=== PATIENT | female | born 1990 | race Caucasian/White ===

== ENCOUNTER 2017-08-02 12:23 | Emergency (ER) | END 2017-08-02 16:30 | disposition home or self-care (01) ==

== ENCOUNTER 2017-08-31 14:38 | Emergency (ER) | END 2017-08-31 18:59 | disposition home or self-care (01) ==

== ENCOUNTER 2017-09-10 16:43 | Emergency (ER) | END 2017-09-10 17:20 | disposition home or self-care (01) ==

== ENCOUNTER 2018-01-20 17:22 | Emergency (ER) | END 2018-01-20 19:43 | disposition home or self-care (01) ==

== ENCOUNTER 2018-04-02 09:49 | Emergency (ER) | END 2018-04-02 12:37 | disposition home or self-care (01) ==

== ENCOUNTER 2018-10-13 12:31 | Inpatient (IN) | payer BC ==
[~2018-10-13] VITALS: Ht 165.1 cm; Wt 61.3 kg
[~2018-10-13 12:31] MED LIST: ACET325T33 PO; AMOX1TAB10 PO; BACITUD TOP; CYCL10TA7 PO; GUAI-173 PO; GUAI1TBM12 PO; IBUP-1542 PO; MECL12.574 PO; MED4DP PO; NAPR-985 PO; ONDA4TAB14 PO; PHEN177S6 MM; PSEU30TA38 PO
[2018-10-13] MEDS ORDERED: morphine 2 MG INJ IV STA ×2 (14:05→18:57)
[2018-10-13] MEDS ORDERED: ONDANSETRON 4 MG INJ IV STA (14:05)
[2018-10-13] MEDS ORDERED: SOD CHLORIDE 0.9% 1,000 ML IV STA (14:05)
[2018-10-13] MEDS ORDERED: IOHEXOL 300MG/ML 150 ML BTL ONE (16:24)
[2018-10-13] MEDS ORDERED: SOD CHLORIDE 0.9% 100 ML ONE (16:24)
[2018-10-13] MEDS ORDERED: KETOROLAC 30 MG INJ IV STA (17:26)
[2018-10-13] MEDS ORDERED: SOD CHLORIDE 0.9% 1,000 ML IV ONE (17:30)
[2018-10-13] MEDS ORDERED: PIPER-TAZO 3.375 GM IV (PMX) 100 ML IVPB ONE (17:30)
--- NOTE | 2018-10-13 17:43 | ERD ---
ER Documentation Chief Complaint Chief Complaint ABD PAIN X1 DAY HPI The patient is a 28-year-old female, presenting to the ER because of right lower quadrant abdominal pain that began last night, denies similar symptoms previously, no aggravating/relieving factor, denies fever, chills, neck pain, chest pain, dyspnea, vomiting, dysuria, complains of constipation, last meal was last night and she is not hungry. She does not smoke nor drink, LMP was 2 weeks ago Past medical/surgical history: None ROS All systems reviewed and are negative except as per history of present illness. Medications Home Meds Active Scripts Ibuprofen* (Motrin*) 600 Mg Tab, 600 MG PO Q6, #20 TAB Prov:PEDRO WELLS MD 06/25/18 Ondansetron (Ondansetron Odt) 4 Mg Tab.rapdis, 4 MG PO Q6H PRN for NAUSEA AND/OR VOMITING, #10 TAB Prov:ROSALIA PHILIPPE PA-C 04/02/18 Meclizine Hcl* (Antivert*) 12.5 Mg Tab, 12.5 MG PO Q6H PRN for DIZZINESS, #20 TAB Prov:ROSALIA PHILIPPE PA-C 04/02/18 Amoxicillin/Potassium Clav (Amox-Clav 875-125 mg Tablet) 875-125 mg Tab, 1 TAB PO BID for 7 Days, #14 TAB Prov:ROSALIA PHILIPPE PA-C 04/02/18 Pseudoephedrine Hcl* (Pseudoephedrine Hcl*) 30 Mg Tablet, 30 MG PO Q6 PRN for CONGESTION, #30 TAB Prov:ROSALIA PHILIPPE PA-C 04/02/18 Naproxen* (Naprosyn*) 500 Mg Tablet, 500 MG PO BID PRN for PAIN AND/OR INFLAMMATION, #30 TAB Prov:ROSALIA PHILIPPE PA-C 04/02/18 Guaifenesin/Dextromethorphan (Mucinex Dm ER 1,200-60 mg Tab) 1 Each Tbmp.12hr, 1 EACH PO BID for 7 Days, #14 TAB Prov:PEDRO WELLS MD 01/20/18 Ibuprofen* (Motrin*) 600 Mg Tab, 600 MG PO Q6, #15 TAB Prov:PEDRO WELLS MD 01/20/18 Bacitracin* (Bacitracin Oint (UD)*) 1 Applic Oint, 1 APPLIC TOP ONCE PRN for BID, #7 PKT APPLY TO Prov:MARY ARAGON PA-C 09/10/17 Cyclobenzaprine Hcl* (Cyclobenzaprine Hcl*) 10 Mg Tablet, 10 MG PO TID PRN for PAIN LEVEL 6-10, #15 TAB Prov:PASILABANABUNDIOAR F 08/31/17 Ibuprofen* (Motrin*) 600 Mg Tab, 600 MG PO Q6H PRN for PAIN AND OR ELEVATED TEMP, #30 TAB Prov:PASILABANABUNDIOAR F 08/31/17 Amoxicillin/Potassium Clav (Amox-Clav 875-125 mg Tablet) 875-125 mg Tab, 1 TAB PO BID for 10 Days, #20 TAB Prov:PASILABANABUNDIOAR F 08/31/17 Methylprednisolone* (Medrol* DOSE PACK) 4 Mg/Dose-Pack Tab.ds.pk, 4 MG PO . DIRECTED for 3 Days, PACKET Prov:AUBRIE BURT 08/02/17 Acetaminophen* (Tylenol*) 325 Mg Tablet, 2 TAB PO Q6 PRN for PAIN AND OR ELEVATED TEMP, #20 TAB Prov:AUBRIE BURT 08/02/17 Phenol* (Throat [place]*) 177 Ml [place], 2 SPRAY MM Q2H PRN for SORE THROAT for 3 Days, SPRAY Prov:AUBRIE BURT 08/02/17 Guaifenesin* (Tussin*) 100 Mg/5 Ml Syrup, 200 MG PO Q6 PRN for COUGH for 3 Days, ML Prov:AUBRIE BURT 08/02/17 Ibuprofen* (Motrin*) 600 Mg Tab, 600 MG PO Q6, #30 TAB Prov:AUBRIE BURT 08/02/17 Allergies Allergies: Coded Allergies: No Known Allergy (Unverified , 04/02/18) PMhx/Soc Medical and Surgical Hx: pt denies Medical Hx, pt denies Surgical Hx History of Surgery: No Anesthesia Reaction: No Hx Neurological Disorder: No Hx Respiratory Disorders: No Hx Cardiac Disorders: No Hx Psychiatric Problems: No Hx Miscellaneous Medical Probl: No Hx Alcohol Use: No Hx Substance Use: No Hx Tobacco Use: No Smoking Status: Never smoker Physical Exam Vitals Vital Signs Date Temp Pulse Resp B/P (MAP) Pulse Ox O2 O2 Flow FiO2 Time Delivery Rate 10/13/18 99.4 106 17 118/87 98 12:33 (97) Physical Exam Const: No acute distress. Dehydrated Head: Atraumatic. Eyes: Normal Conjunctiva. ENT: Normal External Ears, Nose and Mouth. Neck: Full range of motion. No meningismus. Resp: Clear to auscultation bilaterally. Cardio: Regular tachycardic. Abd: Soft, non distended, normal bowel sounds, localized/moderate right lower quadrant tenderness, no rigidity/rebound/CVA tenderness Skin: No petechiae or rashes. Back: No midline or flank tenderness. Ext: No cyanosis, or edema. Neur: Awake and alert. No focal deficit Psych: Normal Mood and Affect. Result Diagram: 10/13/18 1428 10/13/18 1428 Results 24 hrs Laboratory Tests Test 10/13/18 14:28 10/13/18 14:35 White Blood Count 11.0 10^3/ul Red Blood Count 4.36 10^6/ul Hemoglobin 13.0 g/dl Hematocrit 38.4 % Mean Corpuscular Volume 88.1 fl Mean Corpuscular Hemoglobin 29.8 pg Mean Corpuscular Hemoglobin Concent 33.9 g/dl Red Cell Distribution Width 12.3 % Platelet Count 183 10^3/UL Mean Platelet Volume 10.2 fl Immature Granulocytes % 0.400 % Neutrophils % 82.9 % Lymphocytes % 11.7 % Monocytes % 4.7 % Eosinophils % 0.2 % Basophils % 0.1 % Nucleated Red Blood Cells % 0.0 /100WBC Immature Granulocytes # 0.040 10^3/ul Neutrophils # 9.1 10^3/ul Lymphocytes # 1.3 10^3/ul Monocytes # 0.5 10^3/ul Eosinophils # 0.0 10^3/ul Basophils # 0.0 10^3/ul Nucleated Red Blood Cells # 0.0 10^3/ul Sodium Level 139 mmol/L Potassium Level 4.0 mmol/L Chloride Level 103 mmol/L Carbon Dioxide Level 27 mmol/L Anion Gap 9 Blood Urea Nitrogen 15 mg/dl Creatinine 0.61 mg/dl Est Glomerular Filtrat Rate mL/min > 60 mL/min Glucose Level 92 mg/dl Calcium Level 9.4 mg/dl Total Bilirubin 2.0 mg/dl Direct Bilirubin 0.00 mg/dl Indirect Bilirubin 2.0 mg/dl Aspartate Amino Transf (AST/SGOT) 20 IU/L Alanine Aminotransferase (ALT/SGPT) 28 IU/L Alkaline Phosphatase 70 IU/L Total Protein 8.0 g/dl Albumin 4.6 g/dl Globulin 3.40 g/dl Albumin/Globulin Ratio 1.35 Lipase 59 U/L Serum HCG, Qualitative NEGATIVE POC Beta HCG, Qualitative NEGATIVE Current Medications Medications Dose Sig/Marimar Start Time Status Last (Trade) Ordered Route PRN Stop Time Admin Dose Reason Admin Sodium 1,000 ml @ Q1H STAT 10/13/18 DC 10/13/18 Chloride 1,000 mls/hr IV 14:05 14:34 10/13/18 15:04 Morphine 2 mg ONCE STAT 10/13/18 DC 10/13/18 Sulfate IV 14:05 14:34 (morphine) 10/13/18 14:07 Ondansetron 4 mg ONCE STAT 10/13/18 DC 10/13/18 HCl (Zofran IV 14:05 14:34 Inj) 10/13/18 14:07 IV Flush 10 ml STK-MED 10/13/18 DC (NS 10 ml) ONCE .ROUTE 16:24 10/13/18 16:25 Sodium 100 ml @ ud STK-MED 10/13/18 DC Chloride ONCE .ROUTE 16:24 10/13/18 16:25 Iohexol 150 ml STK-MED 10/13/18 DC (Omnipaque ONCE .ROUTE 16:24 300mg/ ml) 10/13/18 16:25 Piperacillin 100 ml @ ONCE ONCE 10/13/18 10/13/18 Sod/ 200 mls/hr IVPB 17:30 17:12 Tazobactam 10/13/18 17:59 Sod Sodium 1,000 ml @ Q1H ONCE 10/13/18 Chloride 1,000 mls/hr IV 17:30 10/13/18 18:29 Ketorolac 30 mg ONCE STAT 10/13/18 DC Tromethamine IV 17:26 (Toradol) 10/13/18 17:28 Procedures/[place] [id number] Radiology Main Line: [phone] DIAGNOSTIC IMAGING REPORT Patient: JEAN-CLAUDE FOWLER : 1990 Age: 28 Sex: F MR #: [id number] [facility] #: [id number] DOS: 10/13/18 1535 Ordering MD: PEDRO WELLS MD Location: ON LICENSE OF [facility] Room/Bed: PROCEDURE: CT ABDOMEN AND PELVIS WITH IV CONTRAST. CLINICAL INDICATION: Right lower quadrant pain TECHNIQUE: CT scan of the abdomen and pelvis with contrast was performed on a multidetector high-resolution CT scanner following the use of IV contrast. 90 cc Omnipaque-300 was administered. Coronal and sagittal reformatted images were obtained from the axial source images. Images were reviewed on a high-resolution PACS workstation. The total exam CTDI equals 6.3 mGy and the total exam DLP equals 393.9 mGy-cm. One or more of the following dose reduction techniques were used: Automated exposure control. Adjustment of the mA and/or kV according to patient size. Use of iterative reconstruction technique. DICOM images are available. COMPARISON: None FINDINGS: CT abdomen: The lung bases are clear. The heart size is within normal limits. There is no significant pericardial effusion. Hepatic morphology is within normal limits. No gross contour deforming masses. The gallbladder is within normal limits. No evidence of intrahepatic or extrahepatic biliary dilatation. The spleen and pancreas are within normal limits. Both adrenal glands are within normal limits. Both kidneys are in normal anatomic position. No evidence of obstruction or hydronephrosis. No gross renal/ureteric calculi. The visualized GI tract demonstrate normal caliber loops of small and large bowel. No evidence of bowel obstruction. The appendix is identified with enhan cement and thickening of the millan with adjacent fat stranding and fluid, consistent with acute appendicitis. No evidence of perforation or focal fluid collections. The aorta is unremarkable. No significant retroperitoneal lymphadenopathy. CT pelvis: The bladder is distended. The uterus is within normal limits. The rectosigmoid colon demonstrates stool. No significant free fluid. No pelvic lymphadenopathy. The visualized osseous structures, appears to be within normal limits. IMPRESSION: 1. FINDINGS DESCRIBED ABOVE ARE CONSISTENT WITH ACUTE APPENDICITIS. THERE IS ADJACENT FATTY STRANDING AND FLUID. NO EVIDENCE OF PERFORATION OR FOCAL FLUID COLLECTIONS. 2. No evidence of bowel obstruction. Call report was made with Dr. Karl Arturo @ 5:00 PM on 10/13/18 RPTAT: AAPP Nahun Fernandez Physician Date Time Electronically viewed and signed by Nahun Fernandez Physician on 10/13/2018 17:01 JL/ CC: PEDRO WELLS MD [phone] UA is pending Consultation: I discussed the patient with the on-call general surgeon Dr. Cantu at 5:30 PM, who was made aware of the lab, the treatment, the patient condition and he accepted the consult MEDICAL MAKING DECISION: The patient is a 28-year-old female, presenting with acute appendicitis, was treated with Zosyn IV, 2 L normal saline IV for clinical dehydration, morphine 2 mg, Toradol 30 mg IV for pain, Zofran 4 mg IV for nausea The differential diagnoses considered include but are not limited to cholelithiasis, cholecystitis, choledocholithiasis, cholangitis, pancreatitis, hepatitis, gastritis, peptic ulcer disease, gastric ulcer, appendicitis, cystitis, diverticulitis, partial small bowel obstruction. Departure Diagnosis: Primary Impression: Appendicitis, acute Condition: Stable Comments I discussed the findings with the patient. I discussed the patient with the hospitalist, who was made aware of the lab, the treatment, the patient condition. The patient is admitted to [facility] Disclaimer: Inadvertent spelling and grammatical errors are likely due to EHR/dictation software use and do not reflect on the overall quality of patient care. Also, please note that the electronic time recorded on this note does not necessarily reflect the actual time of the patient encounter. YUDI TAVARES MD October 13, 2018 17:43
[2018-10-13] MEDS ORDERED: ONDANSETRON 4 MG INJ IV PRN (18:30)
[2018-10-13] MEDS ORDERED: morphine 4 MG/ML VIAL IV STA ×2 (18:52→21:06)
--- NOTE | 2018-10-13 20:38 | CONS ---
Assessment/Plan Assessment/Plan Problems: (1) Appendicitis Status: Acute Qualifiers: Assessment/Plan (Daily) 28-year-old otherwise healthy female with a clinical picture and CT scan findings consistent with acute appendicitis. Patient will need laparoscopic appendectomy. We discussed risks and benefits were discussed possible side effects, possible complications including but not limited to bleeding, i nfection, injury to other organs, anesthesia complication, patient understood risk and benefits and wished to proceed. We will start antibiotics. Consultation Date/Type/Reason Admit Date/Time Date of Consultation: October 13, 2018 Type of Consult Surgical Date/Time of Note DATE: 10/13/18 TIME: 20:32 Hx of Present Illness The patient is a 28-year-old female, presenting to the ER because of right lower quadrant abdominal pain that began last night, denies similar symptoms previo usly, no aggravating/relieving factor, denies fever, chills, neck pain, chest pain, dyspnea, vomiting, dysuria, complains of constipation, last meal was last night and she is not hungry. She does not smoke nor drink, LMP was 2 weeks ago Constitutional: no complaints, improved Eyes: no complaints ENT: no complaints Respiratory: no complaints Cardiovascular: no complaints Gastrointestinal: pain, decreased appetite, vomiting Genitourinary: no complaints Musculoskeletal: no complaints Skin: no complaints Neurologic: no complaints Endocrine: no complaints Lymphatic: no complaints Psychological: no complaints, nl mood/affect Immunologic: no complaints Past Medical History Medical History: no pertinent history Home Meds Active Scripts Ibuprofen* (Motrin*) 600 Mg Tab, 600 MG PO Q6, #20 TAB Prov:PEDRO WELLS MD 06/25/18 Ondansetron (Ondansetron Odt) 4 Mg Tab.rapdis, 4 MG PO Q6H PRN for NAUSEA AND/OR VOMITING, #10 TAB Prov:ROSALIA PHILIPPE PA-C 04/02/18 Meclizine Hcl* (Antivert*) 12.5 Mg Tab, 12.5 MG PO Q6H PRN for DIZZINESS, #20 TAB Prov:ROSALIA PHILIPPE PA-C 04/02/18 Amoxicillin/Potassium Clav (Amox-Clav 875-125 mg Tablet) 875-125 mg Tab, 1 TAB PO BID for 7 Days, #14 TAB Prov:ROSALIA PHILIPPE PA-C 04/02/18 Pseudoephedrine Hcl* (Pseudoephedrine Hcl*) 30 Mg Tablet, 30 MG PO Q6 PRN for CONGESTION, #30 TAB Prov:ROSALIA PHILIPPE PA-C 04/02/18 Naproxen* (Naprosyn*) 500 Mg Tablet, 500 MG PO BID PRN for PAIN AND/OR INFLAMMATION, #30 TAB Prov:ROSALIA PHILIPPE PA-C 04/02/18 Guaifenesin/Dextromethorphan (Mucinex Dm ER 1,200-60 mg Tab) 1 Each Tbmp.12hr, 1 EACH PO BID for 7 Days, #14 TAB Prov:PEDRO WELLS MD 01/20/18 Ibuprofen* (Motrin*) 600 Mg Tab, 600 MG PO Q6, #15 TAB Prov:PEDRO WELLS MD 01/20/18 Bacitracin* (Bacitracin Oint (UD)*) 1 Applic Oint, 1 APPLIC TOP ONCE PRN for BID, #7 PKT APPLY TO Prov:MARY ARAGON PA-C 09/10/17 Cyclobenzaprine Hcl* (Cyclobenzaprine Hcl*) 10 Mg Tablet, 10 MG PO TID PRN for PAIN LEVEL 6-10, #15 TAB Prov:BIPIN CONCEPCION 08/31/17 Ibuprofen* (Motrin*) 600 Mg Tab, 600 MG PO Q6H PRN for PAIN AND OR ELEVATED TEMP, #30 TAB Prov:BIPIN CONCEPCION 08/31/17 Amoxicillin/Potassium Clav (Amox-Clav 875-125 mg Tablet) 875-125 mg Tab, 1 TAB PO BID for 10 Days, #20 TAB Prov:BIPIN CONCEPCION 08/31/17 Methylprednisolone* (Medrol* DOSE PACK) 4 Mg/Dose-Pack Tab.ds.pk, 4 MG PO . DIRECTED for 3 Days, PACKET Prov:AUBRIE BURT 08/02/17 Acetaminophen* (Tylenol*) 325 Mg Tablet, 2 TAB PO Q6 PRN for PAIN AND OR ELEVATED TEMP, #20 TAB Prov:AUBRIE BURT 08/02/17 Phenol* (Throat [place]*) 177 Ml [place], 2 SPRAY MM Q2H PRN for SORE THROAT for 3 Days, SPRAY Prov:AUBRIE BURT 08/02/17 Guaifenesin* (Tussin*) 100 Mg/5 Ml Syrup, 200 MG PO Q6 PRN for COUGH for 3 Days, ML Prov:AUBRIE BURT 08/02/17 Ibuprofen* (Motrin*) 600 Mg Tab, 600 MG PO Q6, #30 TAB Prov:AUBRIE BURT 08/02/17 Medications Current Medications Ondansetron HCl (Zofran Inj) 4 mg Q4 PRN IV nausea Last administered on 10/13/18at 18:57; Admin Dose 4 MG; Start 10/13/18 at 18:30 Piperacillin Sod/ Tazobactam Sod 100 ml @ 200 mls/hr Q8 IVPB ; Start 10/13/18 at 23:30 Dextrose/Sodium Chloride 1,000 ml @ 100 mls/hr Q10H IV ; Start 10/13/18 at 19:00 Allergies: Coded Allergies: No Known Allergy (Unverified , 04/02/18) Past Surgical History Past Surgical Hx: no surgical history Family History Significant Family History: no pertinent family hx Social History Smoking Status: Never smoker Exam/Review of Systems Exam Vitals Vital Signs Date Temp Pulse Resp B/P (MAP) Pulse Ox O2 O2 Flow FiO2 Time Delivery Rate 10/13/18 97.4 75 20 104/59 99 18:50 (74) Constitutional: alert, oriented, well developed Psych: no complaints, nl mood/affect Head: normocephalic, atraumatic Eyes: nl conjunctiva, EOMI, nl lids, nl sclera, PERRL ENMT: nl external ears & nose, nl lips & teeth, nl nasal mucosa & septum Neck: supple, non-tender Respiratory: clear to auscultation, normal air movement Cardiovascular: regular rate and rhythm, nl pulses Gastrointestinal: soft, nl liver, spleen, other (There is a tenderness in the right lower quadrant with the positive rebound sign) Musculoskeletal: nl extremities to inspection, nl gait and stance Extremities: normal pulses Neurological: [employer] II-XII intact, nl mental status, nl speech, nl strength Skin: nl turgor; No rash or lesions Lymph: nl lymph nodes Results Result Diagram: 10/13/18 1428 10/13/18 1428 Results 24hrs Laboratory Tests Test 10/13/18 14:28 10/13/18 14:35 10/13/18 18:24 White Blood Count 11.0 #H Red Blood Count 4.36 Hemoglobin 13.0 Hematocrit 38.4 Mean Corpuscular Volume 88.1 Mean Corpuscular Hemoglobin 29.8 Mean Corpuscular Hemoglobin Concent 33.9 Red Cell Distribution Width 12.3 Platelet Count 183 Mean Platelet Volume 10.2 Immature Granulocytes % 0.400 Neutrophils % 82.9 H Lymphocytes % 11.7 L Monocytes % 4.7 Eosinophils % 0.2 Basophils % 0.1 Nucleated Red Blood Cells % 0.0 Immature Granulocytes # 0.040 H Neutrophils # 9.1 H Lymphocytes # 1.3 Monocytes # 0.5 Eosinophils # 0.0 Basophils # 0.0 Nucleated Red Blood Cells # 0.0 Sodium Level 139 Potassium Level 4.0 Chloride Level 103 Carbon Dioxide Level 27 Anion Gap 9 Blood Urea Nitrogen 15 Creatinine 0.61 Est Glomerular Filtrat Rate mL/min > 60 Glucose Level 92 Calcium Level 9.4 Total Bilirubin 2.0 H Direct Bilirubin 0.00 Indirect Bilirubin 2.0 H Aspartate Amino Transf (AST/SGOT) 20 Alanine Aminotransferase (ALT/SGPT) 28 Alkaline Phosphatase 70 Total Protein 8.0 Albumin 4.6 Globulin 3.40 H Albumin/Globulin Ratio 1.35 Lipase 59 Serum HCG, Qualitative NEGATIVE POC Beta HCG, Qualitative NEGATIVE Urine Color STRAW Urine Clarity CLEAR Urine pH 6.0 Urine Specific Geraldine > 1.060 H Urine Ketones TRACE A Urine Nitrite NEGATIVE Urine Bilirubin NEGATIVE Urine Urobilinogen NEGATIVE Urine Leukocyte Esterase NEGATIVE Urine Hemoglobin NEGATIVE Urine Glucose NEGATIVE Urine Total Protein NEGATIVE Imaging Imaging CT scan showed findings consistent with early appendicitis Medications Medication Current Medications Ondansetron HCl (Zofran Inj) 4 mg Q4 PRN IV nausea Last administered on 10/13/18at 18:57; Admin Dose 4 MG; Start 10/13/18 at 18:30 Piperacillin Sod/ Tazobactam Sod 100 ml @ 200 mls/hr Q8 IVPB ; Start 10/13/18 at 23:30 Dextrose/Sodium Chloride 1,000 ml @ 100 mls/hr Q10H IV ; Start 10/13/18 at 19:00 PATT PROCTOR MD October 13, 2018 20:38
[2018-10-13 22:15] VITALS: BP 129/83; PULSE 86; RESP 20
[2018-10-13] MEDS: PIPER-TAZO 3.375 GM IV (PMX) 100 ML IVPB SCH (23:24)
[2018-10-13] MEDS: DEXTROSE 5%-0.45% NACL 1,000 ML IV SCH (23:25)
[2018-10-14] VITALS (31 sets, daily range): BP systolic 92–150; BP diastolic 51–94; PULSE 48–110; RESP 11–22; Ht 165.1 cm; Wt 61.3 kg
[2018-10-14] MEDS: morphine 4 MG/ML VIAL IV PRN ×3 (00:21→21:04)
[2018-10-14] MEDS: DEXTROSE 5%-0.45% NACL 1,000 ML IV SCH (05:00)
[2018-10-14] MEDS: PIPER-TAZO 3.375 GM IV (PMX) 100 ML IVPB SCH ×3 (05:51→21:13)
[2018-10-14] MEDS ORDERED: BUPIVACAINE 0.5%/EPI (SDV) 30 ML INJ ONE (09:24)
--- NOTE | 2018-10-14 09:25 | PREAC ---
Date/Time of Note Date/Time of Note DATE: 10/14/18 TIME: 09:24 Anesthesia Eval and Record Evaluation Time Pre-Procedure Interview DATE: 10/14/18 TIME: 09:24 Age 28 Sex female NPO: 8 hrs Preoperative diagnosis acute appendicitis Planned procedure laparoscopic appendectomy Past Medical History Past Medical History: None Surgery & Anesthesia Issues No known issue Meds Anticoagulation: No Beta Ricardo within 24 hr: No Reason Beta Ricardo not given: Pt. not on B-Ricardo Active Scripts Ibuprofen* (Motrin*) 600 Mg Tab, 600 MG PO Q6, #20 TAB Prov:PEDRO WELLS MD 06/25/18 Ondansetron (Ondansetron Odt) 4 Mg Tab.rapdis, 4 MG PO Q6H PRN for NAUSEA AND/OR VOMITING, #10 TAB Prov:ROSALIA PHILIPPE PA-C 04/02/18 Meclizine Hcl* (Antivert*) 12.5 Mg Tab, 12.5 MG PO Q6H PRN for DIZZINESS, #20 TAB Prov:ROSALIA PHILIPPE PA-C 04/02/18 Amoxicillin/Potassium Clav (Amox-Clav 875-125 mg Tablet) 875-125 mg Tab, 1 TAB PO BID for 7 Days, #14 TAB Prov:ROSALIA PHILIPPE PA-C 04/02/18 Pseudoephedrine Hcl* (Pseudoephedrine Hcl*) 30 Mg Tablet, 30 MG PO Q6 PRN for CONGESTION, #30 TAB Prov:ROSALIA PHILIPPE PA-C 04/02/18 Naproxen* (Naprosyn*) 500 Mg Tablet, 500 MG PO BID PRN for PAIN AND/OR INFLAMMATION, #30 TAB Prov:ROSALIA PHILIPPE PA-C 04/02/18 Guaifenesin/Dextromethorphan (Mucinex Dm ER 1,200-60 mg Tab) 1 Each Tbmp.12hr, 1 EACH PO BID for 7 Days, #14 TAB Prov:PEDRO WELLS MD 01/20/18 Ibuprofen* (Motrin*) 600 Mg Tab, 600 MG PO Q6, #15 TAB Prov:PEDRO WELLS MD 01/20/18 Bacitracin* (Bacitracin Oint (UD)*) 1 Applic Oint, 1 APPLIC TOP ONCE PRN for BID, #7 PKT APPLY TO Prov:MARY ARAGON PA-C 09/10/17 Cyclobenzaprine Hcl* (Cyclobenzaprine Hcl*) 10 Mg Tablet, 10 MG PO TID PRN for PAIN LEVEL 6-10, #15 TAB Prov:PASILABIPIN JADE 08/31/17 Ibuprofen* (Motrin*) 600 Mg Tab, 600 MG PO Q6H PRN for PAIN AND OR ELEVATED TEMP, #30 TAB Prov:BIPIN CONCEPCION 08/31/17 Amoxicillin/Potassium Clav (Amox-Clav 875-125 mg Tablet) 875-125 mg Tab, 1 TAB PO BID for 10 Days, #20 TAB Prov:BIPIN CONCEPCION 08/31/17 Methylprednisolone* (Medrol* DOSE PACK) 4 Mg/Dose-Pack Tab.ds.pk, 4 MG PO . DIRECTED for 3 Days, PACKET Prov:AUBRIE BURT 08/02/17 Acetaminophen* (Tylenol*) 325 Mg Tablet, 2 TAB PO Q6 PRN for PAIN AND OR ELEVATED TEMP, #20 TAB Prov:AUBRIE BURT 08/02/17 Phenol* (Throat [place]*) 177 Ml [place], 2 SPRAY MM Q2H PRN for SORE THROAT for 3 Days, SPRAY Prov:AUBRIE BURT 08/02/17 Guaifenesin* (Tussin*) 100 Mg/5 Ml Syrup, 200 MG PO Q6 PRN for COUGH for 3 Days, ML Prov:AUBRIE BURT 08/02/17 Ibuprofen* (Motrin*) 600 Mg Tab, 600 MG PO Q6, #30 TAB Prov:AUBRIE BURT 08/02/17 Current Medications Ondansetron HCl (Zofran Inj) 4 mg Q4 PRN IV nausea Last administered on 10/13/18at 18:57; Admin Dose 4 MG; Start 10/13/18 at 18:30 Piperacillin Sod/ Tazobactam Sod 100 ml @ 200 mls/hr Q8 IVPB Last administered on 10/14/18at 05:51; Admin Dose 200 MLS/HR; Start 10/13/18 at 23:30 Dextrose/Sodium Chloride 1,000 ml @ 100 mls/hr Q10H IV Last administered on 10/13/18at 23:25; Admin Dose 100 MLS/HR; Start 10/13/18 at 19:00 Morphine Sulfate (morphine) 4 mg Q4H PRN IV SEVERE PAIN LEVEL 7-10 Last administered on 10/14/18at 08:35; Admin Dose 4 MG; Start 10/13/18 at 23:00 Meds reviewed: Yes Allergies Coded Allergies: No Known Allergy (Unverified , 04/02/18) Allergies Reviewed: Yes Labs/Studies Labs Reviewed: Reviewed by anesthesiologist Result Diagram: 10/13/18 1428 10/13/18 1428 Laboratory Tests 10/13/18 14:28 test: Negative Pre-procedure Exam Last vitals Vital Signs Date Temp Pulse Resp B/P (MAP) Pulse Ox O2 O2 Flow FiO2 Time Delivery Rate 10/14/18 98.6 76 18 94/56 (69) 98 Room Air 08:09 Airway: Adequate mouth opening, Adequate thyromental dist Mallampati: Mallampati I Teeth: Normal Lung: Normal Heart: Normal ASA Physical Status ASA physical status: 2 Emergency: E Planned Anesthetic General/MAC: ETT Planned Pain Management Parenteral pain med Pre-operative Attestations Prior to commencing anesthesia and surgery, the patient was re-evaluated, there was verification of: *The patient's identity *The results of appropriate recent lab work and preoperative vital signs *The above evaluation not changing prior to induction *Anesthetic plan, risk benefits, alternative and complications discussed with patient/family; questions answered; patient/family understands, accepts and wishes to proceed. RENETTA JOHNSON October 14, 2018 09:25
[2018-10-14] MEDS ORDERED: LIDOCAINE 2% (SDV) 5 ML INJ ONE (09:30)
[2018-10-14] MEDS ORDERED: ROCURONIUM 50 MG INJ ONE (09:30)
[2018-10-14] MEDS ORDERED: PROPOFOL 40 ML ONE (09:30)
[2018-10-14] MEDS ORDERED: DEXAMETHASONE 4 MG/ML 5 ML INJ ONE (09:55)
[2018-10-14] MEDS ORDERED: ONDANSETRON 4 MG INJ ONE (09:56)
[2018-10-14] MEDS ORDERED: ROPIVACAINE 0.5 % 30 ML VIAL ONE (10:41)
--- NOTE | 2018-10-14 10:53 | OPR ---
Date/Time of Note Date/Time of Note DATE: 10/14/18 TIME: 10:49 Operative Report Procedure Date: October 14, 2018 Preoperative Diagnosis Acute appendicitis Postoperative Diagnosis Acute appendicitis Operation/Procedure Performed Laparoscopic appendectomy Surgeon see signature line Facilities Painter None Anesthesia Type: general Anesthesiologist: RENETTA JOHNSON Estimated Blood Loss: minimal Transfusion none Specimen Appendix Grafts/Implants none Complications none Pt Condition Post Procedure: stable Disposition: PACU Indications 28-year-old female with abdominal pain elevated white blood count and CT scan confirmed acute appendicitis. We discussed risks and benefits were discussed possible side effects, possible complications including but not limited to bl eeding, infection, injury to other organs, anesthesia complication, patient understood risk and benefits and wished to proceed. Procedure Description The risks, benefits and alternatives of the procedure were discussed with the patient and informed consent was obtained. We discussed with the patient and the family possibility of the bleeding, infection, injury to other organs. Patient was brought to operating room positioned supine. General endotracheal anesthesia was induced. Abdomen was prepped and draped in the usual sterile fashion. Timeout was performed. Antibiotics were given previously. Through the small infraumbilical incision the Veress needle was placed and the abdomen was insufflated with CO2 up to 15 mmHg. Through the same incision 5 mm trocar was placed under direct control of the laparoscope. 2 additional trocars were placed in the midline, 12 mm trocar just above the pubis and 5 mm trocar midline between the pubis and the umbilicus. The appendix was visualized and was found to be acutely inflamed with phlegmon. The window was created using blunt dissection at the mesentery of the appendix next to the cecum and appendix was divided using endoscopic stapler with white load. The additional load of the same stapler was used to divide the mesentery. The hemostasis was confirmed. Local bleeding was controlled with the cautery. The abdomen was irrigated all the fluid was carefully sucked out. There is appendix was removed through the 12 mm trocar using Endocatch. The abdomen was desufflated all trocars were removed. The 12 mm trocar was closed in 2 layers using 0 Vicryl to the fascia and 4-0 Monocryl for the skin. The 5 mm trocars were closed just using 4-0 Monocryl to the skin. Patient tolerated procedure well was extubated transferred to recovery room. PATT PROCTOR MD October 14, 2018 10:53
[2018-10-14] MEDS ORDERED: HYDR-4011 PO (10:55)
[2018-10-14] MEDS ORDERED: GLYCOPYRROLATE 0.4 MG INJ ONE (10:59)
[2018-10-14] MEDS ORDERED: NEOSTIGMINE 3 MG/3 ML SYRINGE ONE (10:59)
[2018-10-14] MEDS ORDERED: IBUPROFEN 600 MG TAB PO PRN (11:00)
[2018-10-14] MEDS ORDERED: ACETAMINOPHEN 325 MG TAB PO PRN (11:00)
[2018-10-14] MEDS ORDERED: DIPHENHYDRAMINE 50 MG INJ IV PRN ×2 (11:00→11:30)
[2018-10-14] MEDS ORDERED: DIPHENHYDRAMINE 25 MG CAP PO PRN (11:00)
--- NOTE | 2018-10-14 11:01 | HP ---
DATE OF ADMISSION: 10/13/2018 CHIEF COMPLAINT: Right lower quadrant abdominal pain. HISTORY OF PRESENT ILLNESS: A 28-year-old female who presented to emergency room with complaint of r ight lower quadrant abdominal pain, which started the day prior to admission. This was associated wi th nausea, chills, and a fever. No hematemesis. No bright red blood per rectum or melena. A CAT sc an of the abdomen and pelvis was consistent with acute appendicitis. There was adjacent fatty strand ing and fluid collection. There was no evidence of perforation or focal fluid collections. PAST MEDICAL HISTORY: None. PAST SURGICAL HISTORY: None. MEDICATIONS PRIOR TO ADMISSION: Occasional decongestants. SOCIAL HISTORY: The patient lives at home. She denies tobacco or alcohol use. PHYSICAL EXAMINATION: GENERAL: Well-developed, well-nourished female who is in mild distress due to abdominal pain. VITAL SIGNS: Stable. She is afebrile. HEENT: Extraocular muscles are intact. Pupils are equal and reactive to light bilaterally. Sclerae are anicteric. Oropharynx is clear and moist. NECK: Supple, no JVD, no carotid bruits. LUNGS: Clear to auscultation bilaterally. CARDIAC: Regular rate and rhythm. No murmurs, rubs or gallops. ABDOMEN: Right lower quadrant tenderness to palpation with guarding. Normoactive bowel sounds. EXTREMITIES: No clubbing, cyanosis, or edema. NEUROLOGICAL: Grossly nonfocal. LABORATORY DATA: WBC 11, hemoglobin 13, platelet count 183,000. Basic metabolic panel and liver fun ction tests are within normal limits except total bilirubin of 2. Serum hCG was negative. ASSESSMENT: A 28-year-old female with acute appendicitis. PLAN: 1. Admit to med/surg, n.p.o., IV Zosyn. 2. Pain control. 3. Surgical consultation was requested. 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 Dictated By: OLY SOLO MD SK/KRISS Conf#: [id number] DID#: [id number] CC: OLY SOLO MD;*EndCC*
--- NOTE | 2018-10-14 11:11 | PAC ---
Date/Time of Note Date/Time of Note DATE: 10/14/18 TIME: 11:11 Post-Anesthesia Notes Post-Anesthesia Note Last documented vital signs Vital Signs Date Temp Pulse Resp B/P (MAP) Pulse Ox O2 O2 Flow FiO2 Time Delivery Rate 10/14/18 98.6 76 18 94/56 (69) 98 Room Air 1110 Activity: WNL Respiratory function: WNL Cardiovascular function: WNL Mental status: Baseline Pain reasonably controlled: Yes Hydration appropriate: Yes Nausea/Vomiting absent: Yes RENETTA JOHNSON October 14, 2018 11:11
[2018-10-14] MEDS ORDERED: MEPERIDINE 25 MG INJ IV PRN (11:30)
[2018-10-14] MEDS ORDERED: MIDAZOLAM 1 MG/ML 2 ML INJ IV PRN (11:30)
[2018-10-14] MEDS ORDERED: KETOROLAC 30 MG INJ IV PRN (11:30)
[2018-10-14] MEDS ORDERED: LABETALOL HCL 20MG INJ IV PRN (11:30)
[2018-10-14] MEDS ORDERED: ALBUTEROL 0.083% (NEB) 2.5 MG/3 ML AMP HHN PRN (11:30)
[2018-10-14] MEDS ORDERED: EPHEDrine 25 MG/5 ML SYG IV PRN (11:30)
[2018-10-14] MEDS ORDERED: FENTAnyl 50 MCG/ML VIAL IV PRN ×2 (11:30)
[2018-10-14] MEDS ORDERED: METOCLOPRAMIDE 10 MG INJ IV PRN (11:30)
[2018-10-14] MEDS ORDERED: HYDROmorphONE 1 MG/5 ML IV SYRINGE IV PRN ×2 (11:30)
[2018-10-14] MEDS ORDERED: ONDANSETRON 4 MG INJ IV PRN (11:30)
[2018-10-14] MEDS ORDERED: hydrALAzine 20 MG INJ IV PRN (11:30)
[2018-10-14] MEDS: FENTAnyl 50 MCG/ML VIAL IV PRN ×2 (11:50→12:00)
[2018-10-14] MEDS: HYDROmorphONE 1 MG/5 ML IV SYRINGE IV PRN ×2 (11:51→12:01)
[2018-10-14] MEDS: KETOROLAC 30 MG INJ IV PRN (11:59)
[2018-10-14] MEDS: D5W-0.45 NACL + KCL 20 MEQ 1,000 ML IV SCH ×2 (13:23→20:53)
[2018-10-14] MEDS: HYDROCODONE/APAP (5/325) TAB PO PRN ×2 (13:32→18:45)
[2018-10-14] MEDS: HYDROmorphONE 0.5 MG/0.5 ML SYG IV PRN (23:40)
[2018-10-15] MEDS: ONDANSETRON 4 MG INJ IV PRN ×2 (01:19→10:35)
[2018-10-15] MEDS: morphine 4 MG/ML VIAL IV PRN ×2 (01:19→05:51)
[2018-10-15] MEDS: D5W-0.45 NACL + KCL 20 MEQ 1,000 ML IV SCH ×3 (01:47→15:12)
[2018-10-15 02:00] VITALS: BP 112/60; PULSE 72; RESP 18
[2018-10-15] MEDS: HYDROCODONE/APAP (5/325) TAB PO PRN (02:15)
[2018-10-15] MEDS: PIPER-TAZO 3.375 GM IV (PMX) 100 ML IVPB SCH ×3 (05:46→22:05)
[2018-10-15 08:19] VITALS: BP 94/54; PULSE 72; RESP 16
[2018-10-15] MEDS: KETOROLAC 30 MG INJ IV PRN ×2 (10:35→19:40)
[2018-10-15] MEDS: HYDROmorphONE 0.5 MG/0.5 ML SYG IV PRN ×2 (13:32→23:18)
[2018-10-15 14:07] VITALS: BP 107/61; PULSE 67; RESP 16
--- NOTE | 2018-10-15 15:58 | PN ---
Date/Time of Note Date/Time of Note DATE: 10/15/18 TIME: 15:55 Assessment/Plan Lines/Catheters IV Catheter Type (from Nrsg): Peripheral IV Assessment/Plan Chief Complaint/Hosp Course Postoperative day 1 after laparoscopic appendectomy. Patient is still nauseated, not ready to go home. Assessment/Plan Plan is to continue IV fluids nausea control pain control advance diet as tolerated. Subjective 24 Hr Interval Summary Patient is first day after laparoscopic appendectomy. Still nauseated does not tolerate liquids, not ambulating, complains of incisional pain. However patient vital signs are stable, heart rate is 72, and she is afebrile. Constitutional: other (Nausea and abdominal pain.) Feeding: clear Pain Control: moderate Exam/Review of Systems Vital Signs Vitals Vital Signs Date Temp Pulse Resp B/P (MAP) Pulse Ox O2 O2 Flow FiO2 Time Delivery Rate 10/15/18 98.5 72 16 94/54 (67) 93 Room Air 08:19 10/15/18 20.0 02:00 Intake and Output 10/14/18 10/14/18 10/15/18 1515:00 23:00 07:00 IntakeIntake Total 2100 ml 720 ml 1100 ml OutputOutput Total 10 ml BalanceBalance 2090 ml 720 ml 1100 ml Exam Constitutional: alert, oriented, well developed Psych: no complaints, nl mood/affect Head: normocephalic, atraumatic Eyes: nl conjunctiva, EOMI, nl lids, nl sclera ENMT: nl external ears & nose, nl lips & teeth, nl nasal mucosa & septum, mucosa pink and moist Neck: supple, non-tender Respiratory: clear to auscultation, normal air movement Cardiovascular: regular rate and rhythm, nl pulses Gastrointestinal: soft, nl liver, spleen, non-tender, surgical scars (Clean no discharge), other Musculoskeletal: nl extremities to inspection, nl gait and stance Extremities: normal pulses 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
[2018-10-15 20:00] VITALS: BP 120/70; PULSE 99; RESP 17
[2018-10-16 02:00] VITALS: BP 108/59; PULSE 75; RESP 18
[2018-10-16] MEDS: D5W-0.45 NACL + KCL 20 MEQ 1,000 ML IV SCH ×2 (02:07→12:53)
--- NOTE | 2018-10-16 03:03 | DS ---
DATE OF ADMISSION: 10/13/2018 DATE OF DISCHARGE: 10/15/2018 DISCHARGE DIAGNOSES: 1. Acute appendicitis. 2. Status post laparoscopic appendectomy. HOSPITAL COURSE: A 28-year-old female with unremarkable past medical history presented to emergency room with complaint of right lower quadrant abdominal pain. The patient was diagnosed with acute joanna endicitis. She was taken to the operating room by Dr. Alcantara and underwent laparoscopic appendectomy. There were no intraoperative or postoperative complications. On postoperative day #1, she complain ed of persistent pain. The patient reported that she does not tolerate her breakfast. I encouraged her to ambulate with physical therapy. I also ordered KUB to rule out postoperative ileus. The consuelo ent is in stable condition for discharge if she tolerates oral intake and okay with Dr. Alcantara. I pre scribed [place] 5/325. The patient will follow up with PCP and Dr. Alcantara as an outpatient. Dictated By: OLY SOLO MD SK/NTS Conf#: [id number] DID#: [id number] CC: PATT ALCANTARA MD;*EndCC*
[2018-10-16] MEDS: PIPER-TAZO 3.375 GM IV (PMX) 100 ML IVPB SCH ×2 (05:33→13:00)
[2018-10-16 07:42] VITALS: BP 111/68; PULSE 73; RESP 18
[2018-10-16] MEDS: KETOROLAC 30 MG INJ IV PRN (08:02)
[2018-10-16] MEDS: ONDANSETRON 4 MG INJ IV PRN (08:02)
--- NOTE | 2018-10-16 10:13 | PN ---
Date/Time of Note Date/Time of Note DATE: 10/16/18 TIME: 10:11 Subjective Doing much better. Pain is better controlled. Objective Vitals Vital Signs Date Temp Pulse Resp B/P (MAP) Pulse Ox O2 O2 Flow FiO2 Time Delivery Rate 10/16/18 99.1 73 18 111/68 93 07:42 (82) 10/15/18 Nasal 2.0 20:05 Cannula Intake and Output 10/15/18 10/15/18 10/16/18 1515:00 23:00 07:00 IntakeIntake Total 1400 ml 1300 ml BalanceBalance 1400 ml 1300 ml Clear to auscultation bilaterally Regular rate and rhythm Soft mildly tender. Normoactive bowel sounds No edema Nonfocal Results Result Diagram: 10/13/18 1428 10/13/18 1428 Medications Medications Current Medications Piperacillin Sod/ Tazobactam Sod 100 ml @ 200 mls/hr Q8 IVPB Last administered on 10/16/18at 05:33; Admin Dose 200 MLS/HR; Start 10/13/18 at 23:30 Morphine Sulfate (morphine) 4 mg Q4H PRN IV SEVERE PAIN LEVEL 7-10 Last admi nistered on 10/15/18at 05:51; Admin Dose 4 MG; Start 10/13/18 at 23:00 Ondansetron HCl (Zofran Inj) 4 mg Q6H PRN IV NAUSEA AND/OR VOMITING Last administered on 10/16/18at 08:02; Admin Dose 4 MG; Start 10/14/18 at 11:00 Acetaminophen (Tylenol Tab) 650 mg Q6H PRN PO PAIN LEVEL 1-3 OR FEVER; Start 10/14/18 at 11:00 Ibuprofen (Motrin) 600 mg Q6H PRN PO PAIN LEVEL 1-3; Start 10/14/18 at 11:00 Ketorolac Tromethamine (Toradol) 30 mg Q6H PRN IV PAIN Last administered on 10/16/18at 08:02; Admin Dose 30 MG; Start 10/14/18 at 11:00; Stop 10/17/18 at 10:59 Hydromorphone HCl (Dilaudid) 0.5 mg Q4H PRN IV PAIN LEVEL 8-10 Last administered on 10/15/18at 23:18; Admin Dose 0.5 MG; Start 10/14/18 at 11:00 Acetaminophen/ Hydrocodone Bitart ([place] (5/325)) 1 tab Q6H PRN PO PAIN LEVEL 4-7 Last administered on 10/15/18at 02:15; Admin Dose 1 TAB; Start 10/14/18 at 11:00 Potassium Chloride/Dextrose/ Sod Cl 1,000 ml @ 100 mls/hr Q10H IV Last administered on 10/16/18at 02:07; Admin Dose 100 MLS/HR; Start 10/14/18 at 10:53 Diphenhydramine HCl (Benadryl) 25 mg Q6H PRN IV PRURITUS Last administered on 10/15/18at 01:48; Admin Dose 25 MG; Start 10/14/18 at 11:00 Diphenhydramine HCl (Benadryl) 25 mg Q6H PRN PO PRURITUS; Start 10/14/18 at 11:00 VTE Prophylaxis Risk score (from Nsg)>0 risk: 6 SCD applied (from Ns): Yes Lines/Catheters IV Catheter Type: Saline Lock Cope in Place: No Assessment/Plan Assessment/Plan Acute appendicitis Postop day #2 lap appendectomy Discharge home Advance diet slowly as tolerated Follow-up with PCP and OLY Claros MD October 16, 2018 10:13
[2018-10-16] MEDS: HYDROCODONE/APAP (5/325) TAB PO PRN ×2 (10:51→18:01)
[2018-10-16 13:45] VITALS: BP 114/66; PULSE 70; RESP 18
[2018-10-16 20:27] VITALS: BP 119/80; PULSE 76; RESP 19
== END 2018-10-16 20:45 | disposition home or self-care (01) | DRG 340 ==
LOC: FTE 12:31 → 2NE 18:58
PROVIDERS: ADMIT Internal Medicine; ATTEND Internal Medicine
PROC: 0DTJ4ZZ Resection of Appendix, Percutaneous Endoscopic Approach (ICD-10-PCS; principal; 2018-10-14 14:30)
DX: K35.33 Acute appendicitis with perforation, localized peritonitis, and gangrene, with abscess (principal)
CPT/HCPCS: 36415; 74018; 74177; 80053; 81003; 81025; 83690; 84703; 85025; 88304; 94664; 96361; 96374; 96375; 96376; 97161; J1100; J1170; J1200; J1885; J2175; J2270; J2405; J2543; J2710; J2795; J3010; J3480; J7030; J7042; Q9967

== ENCOUNTER 2018-10-25 12:53 | Emergency (ER) | payer BC ==
[~2018-10-25] VITALS: Ht 160 cm; Wt 60.0 kg
[~2018-10-25 12:53] MED LIST changes: -ACET325T33 PO; -AMOX1TAB10 PO; -BACITUD TOP; -CYCL10TA7 PO; -GUAI-173 PO; -GUAI1TBM12 PO; +HYDR-4011 PO; -IBUP-1542 PO; -MECL12.574 PO; -MED4DP PO; -NAPR-985 PO; -ONDA4TAB14 PO; -PHEN177S6 MM; -PSEU30TA38 PO
[2018-10-25 12:57] VITALS: BP 144/71; PULSE 79; RESP 16; Ht 160 cm; Wt 60.0 kg
[2018-10-25] MEDS ORDERED: CEPH-443 PO (15:02)
[2018-10-25] MEDS ORDERED: METR500T PO (15:02)
--- NOTE | 2018-10-25 15:17 | ERD ---
ER Documentation Chief Complaint Chief Complaint AP & DYSURIA X 1 WEEK, S/P GI SURGERY HPI This is a 28-year-old female presents to the ED complaining of left lower pelvic pain with dysuria, frequency, urgency x1 week. She states she is also been having white vaginal discharge. She states her last menstrual cycle was over 3 weeks ago. She denies any exposure to STIs. She denies any nausea, vomiting, flank pain. She was recently admitted here on October 13 for acute appendicitis and discharged 9 days ago. ROS All systems reviewed and are negative except as per history of present illness. Medications Home Meds Active Scripts Cephalexin* (Keflex*) 500 Mg Capsule, 500 MG PO BID for 7 Days, CAP Prov:DISHIGRIKIAN,ZEPYUR N PA-C 10/25/18 Metronidazole* (Flagyl*) 500 Mg Tablet, 500 MG PO BID for 7 Days, TAB Prov:DISHIGRIKIAN,ZEPYUR N PA-C 10/25/18 Hydrocodone/Acetaminophen ([place] 5-325 Tablet) 1 Each Tablet, 1 EACH PO Q4, #20 TAB Prov:OLY SOLO MD 10/14/18 Allergies Allergies: Coded Allergies: No Known Allergy (Unverified , 04/02/18) PMhx/Soc History of Surgery: No Anesthesia Reaction: No Hx Neurological Disorder: No Hx Respiratory Disorders: No Hx Cardiac Disorders: No Hx Psychiatric Problems: No Hx Miscellaneous Medical Probl: No Hx Alcohol Use: No Hx Substance Use: No Hx Tobacco Use: No Physical Exam Vitals Vital Signs Date Temp Pulse Resp B/P (MAP) Pulse Ox O2 O2 Flow FiO2 Time Delivery Rate 10/25/18 98.7 79 16 144/71 97 12:57 (95) Physical Exam Const: No acute distress Head: Atraumatic Eyes: Normal Conjunctiva ENT: Normal External Ears, Nose and Mouth. Neck: Full range of motion. No meningismus. Resp: Clear to auscultation bilaterally Cardio: Regular rate and rhythm, no murmurs Abd: Soft, + mild mid suprapubic tenderness palpation, no rebound, no guar ding. Non distended. Normal bowel sounds. + Well-healing lower pelvic and right upper quadrant abdominal scars. 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 Abdomen: + mild mid suprapbuic tenderness External Genitalia: Normal Skin Speculum: Normal vaginal mucosa, + white discharge Skin: No petechiae or rashes Back: No midline or flank tenderness Ext: No cyanosis, or edema Neur: Awake and alert Psych: Normal Mood and Affect Results 24 hrs Laboratory Tests Test 10/25/18 13:39 Urine Color YELLOW Urine Clarity CLOUDY Urine pH 5.0 Urine Specific [place] 1.025 Urine Ketones NEGATIVE mg/dL Urine Nitrite POSITIVE mg/dL Urine Bilirubin NEGATIVE mg/dL Urine Urobilinogen NEGATIVE mg/dL Urine Leukocyte Esterase 3+ Luis E/ul Urine Microscopic RBC 3 /HPF Urine Microscopic WBC 4 /HPF Urine Squamous Epithelial Cells MANY /HPF Urine Bacteria MODERATE /HPF Urine Mucus MODERATE /HPF Urine Hemoglobin NEGATIVE mg/dL Urine Glucose NEGATIVE mg/dL Urine Total Protein NEGATIVE mg/dl Urine Test NEGATIVE Procedures/MDM LABS & DIAGNOSTIC IMAGING: Urine: + nitrites, + leuk esterase Upreg: neg Wet mount: + clue cells, + trichomonas MEDICAL DECISION MAKIN-year-old female with recent appendectomy presents with urinary symptoms and vaginal discharge. Her abdomal exam is unremarkable. UA reveals UTI, wet mount also shows BV and trichomonas. Will treat with oral antibiotics and antifungals. She has no fever here, vital signs are stable. I have low suspicion for STI, pyelonephritis, PID or any other emergent gynecological process. Recommended follow up with PCP sometime this week. Strict return precautions discussed. PRESCRIPTIONS: Keflex, metronidazole SPECIALIST FOLLOW UP RECOMMENDED: None Patient has been advised to follow up with primary care in 1-2 days. Departure Diagnosis: Primary Impression: Bacterial vaginosis Additional Impression: Trichomonas vaginitis Condition: Stable Patient Instructions: Urinary Tract Infections in Women, Trichomonas Vaginalis (Discharge) Referrals: [facility] YOU HAVE RECEIVED A MEDICAL SCREENING EXAM AND THE RESULTS INDICATE THAT YOU DO NOT HAVE A CONDITION THAT REQUIRES URGENT TREATMENT IN THE EMERGENCY DEPARTMENT. FURTHER EVALUATION AND TREATMENT OF YOUR CONDITION CAN WAIT UNTIL YOU ARE SEEN IN YOUR DOCTORS OFFICE WITHIN THE NEXT 1-2 DAYS. IT IS YOUR RESPONSIBILITY TO MAKE AN APPOINTMENT FOR FOLOW-UP CARE. IF YOU HAVE A PRIMARY DOCTOR --you should call your primary doctor and schedule an appointment IF YOU DO NOT HAVE A PRIMARY DOCTOR YOU CAN CALL OUR PHYSICIAN REFERRAL HOTLINE AT IF YOU CAN NOT AFFORD TO SEE A PHYSICIAN YOU CAN CHOSE FROM THE FOLLOWING [facility] [address] [facility]818) [phone] [facility]. [facility] [address] [facility] [address] [facility] [address] [facility] [facility]. [address] [facility]. [facility] YOU HAVE RECEIVED A MEDICAL SCREENING EXAM AND THE RESULTS INDICATE THAT YOU DO NOT HAVE A CONDITION THAT REQUIRES URGENT TREATMENT IN THE EMERGENCY DEPARTMENT. FURTHER EVALUATION AND TREATMENT OF YOUR CONDITION CAN WAIT UNTIL YOU ARE SEEN IN YOUR DOCTORS OFFICE WITHIN THE NEXT 1-2 DAYS. IT IS YOUR RESPONSIBILITY TO MAKE AN APPOINTMENT FOR FOLOW-UP CARE. IF YOU HAVE A PRIMARY DOCTOR --you should call your primary doctor and schedule and appointment IF YOU DO NOT HAVE A PRIMARY DOCTOR YOU CAN CALL OUR PHYSICIAN REFERRAL HOTLINE AT . IF YOU CAN NOT AFFORD TO SEE A PHYSICIAN YOU CAN CHOSE FROM THE FOLLOWING [facility] INSTITUTIONS: [facility] [address] [place] [address] [facility] [address] [place] [address] [facility] + [facility] [address] [place] [address] [facility] URGENT CARE/SPECIALTIES Additional Instructions: Call your primary care doctor TOMORROW for an appointment during the next 2-4 days and bring all the information and medications prescribed. If the symptoms get worse and your provider is unavailable, return to the Emergency Department immediately. MILTON FRASER PA-C Oct 25, 2018 15:17
== END 2018-10-25 15:35 | disposition home or self-care (01) ==
LOC: FTE 12:53
DX: A59.01 Trichomonal vulvovaginitis (principal); N76.0 Acute vaginitis
CPT/HCPCS: 81001; 84703; 87210; 99284